=== PATIENT | female | born 1970 | race Two or more races ===

== ENCOUNTER 2024-02-16 06:20 | Day surgery (SDC) | payer BC, SELFPAY | END 2024-02-16 15:17 | disposition home or self-care (01) | LOC: GI 06:20 | PROVIDERS: ATTENDING PHYSICIAN Internal Medicine Gastroenterology; FAMILY PHYSICIAN Anesthesiology | DX: Z12.11 Encounter for screening for malignant neoplasm of colon (principal); K64.8 Other hemorrhoids; Z80.0 Family history of malignant neoplasm of digestive organs | CPT/HCPCS: G0105 ==